=== PATIENT | male | born 1940 | race Caucasian/White ===

== ENCOUNTER 2016-10-09 09:15 | Inpatient (IN) ==
[2016-10-09] MEDS ORDERED: Acetaminophen 325 MG TABLET PO ONE (09:48)
--- NOTE | 2016-10-09 09:48 | Emergency Department Note ---
Disposition Clinical Impression: Pyelonephritis Urinary tract infection Qualifiers: Urinary tract infection type: site unspecified Hematuria presence: without hematuria Qualified Code(s): N39.0 - Urinary tract infection, site not specified Disposition: Admitted As Inpatient Condition: Fair [facility]: [facility] [Primary Care Provider[facility] - Forms: ED Satisfaction Letter General Adult HPI - General Chief complaint: ED Urogenital-Male Stated complaint: chills frequent urination Time Seen by Provider: 10/09/16 09:48 Source: patient Mode of arrival: private vehicle Limitations: no limitations Nursing Notes Reviewed: Yes Vital Signs Reviewed: Yes - History of Present Illness HPI Narrative: Presents to the ED complaining of urinary frequency, chills and testicular discomfort. He also reports worsening of his baseline shortness of breath. Urinary symptoms started yesterday. He has been urinating frequently but only with small amounts. He does report a change in the color of his urine but denies any hematuria or dysuria. Testicular discomfort as mild and dull. Denies any swelling or discharge. He had chills this morning but is not aware of a fever at home. States she also felt more short of breath than usual this morning. He has a history of COPD and wears oxygen at 2 L only at night. He has a chronic cough that is productive of clear to yellow sputum. Denies any change in the frequency or color of sputum. Does report compliance with his Spiriva, Symbicort and Flovent. He is use one albuterol treatment this morning. He is also noted some lower extremity swelling over the past 3-4 days. Denies any history of CHF. No chest pain. No abdominal pain, nausea, vomiting, diarrhea or constipation. states that they have seen some "spots " on his kidneys on previous imaging and he has been referred to nephrology at [facility] and has an appointment in October. They are not aware of any problems with renal function. He has a history of a TURP in 2010 for BPH. No history of prostate cancer. Pain Scale: 4 - Related Data Home Medications Medication Instructions Recorded Confirmed Albuterol Neb [AccuNeb] 1 aerosol AER Q8H 10/01/16 10/09/16 Albuterol Sulfate [Albuterol 2 puff IH Q4HR PRN 10/01/16 10/09/16 Inhaler] Cholecalciferol (D-3) [Vitamin D] 1,000 unit PO DAILY 10/01/16 10/09/16 Ferrous Gluconate 324 mg PO TID 10/01/16 10/09/16 Lisinopril-HCTZ 20-12.5 [Prinzide 1 each PO DAILY 10/01/16 10/09/16 20-12.5] Saxagliptin HCl [Onglyza] 2.5 mg PO DAILY 10/01/16 10/09/16 Tiotropium [Spiriva] 1 puff IH DAILY 10/01/16 10/09/16 Vit A/Vit C/Vit E/Zinc/Copper 1 each PO BIDWM 10/01/16 10/09/16 [Icaps Areds Formula Dr Tablet] Aspirin Enteric Coated [Aspirin EC] 81 mg PO DAILY 10/09/16 10/09/16 Budesonide/Formoterol 160/4.5 2 puff IH BIDR 10/09/16 10/09/16 [Symbicort 160/4.5] Metformin HCl [Glucophage] 1,000 mg PO BID 10/09/16 10/09/16 Multivitamin/Iron/Folic Acid 1 tab PO DAILY 10/09/16 10/09/16 [Centrum Complete Multivit Tab] Nabumetone [Relafen] 500 mg PO BID 10/09/16 10/09/16 Simvastatin [Zocor] 40 mg PO HS 10/09/16 10/09/16 Tiotropium [Spiriva] 18 mcg IH DAILY 10/09/16 10/09/16 amLODIPine [Norvasc] 5 mg PO DAILY 10/09/16 10/09/16 glipiZIDE [Glipizide] 10 mg PO DAILY 10/09/16 10/09/16 Allergies Allergy/AdvReac Type Severity Reaction Status Date / Time cilostazol [From Pletal] AdvReac See Verified 10/01/16 10:24 Comments doxazosin AdvReac Dizziness Verified 10/01/16 10:24 roflumilast [From Daliresp] AdvReac Diarrhea Verified 10/01/16 10:24 Constitutional: Reports: chills Eyes: Denies: eye pain, eye discharge, vision change ENT ED: Denies: ear pain, throat pain, dental pain, hearing loss, epistaxis, congestion, dysphagia Cardiovascular: Denies: chest pain, palpitations, dyspnea on exertion, edema, syncope Respiratory: Reports: cough, dyspnea, sputum production. Denies: wheezes, hemoptysis, stridor Gastrointestinal: Denies: abdominal pain, nausea, vomiting, diarrhea, constipation, hematemesis, melena, hematochezia Genitourinary: Reports: as per HPI, urgency, frequency, testicular pain. Denies : dysuria, hematuria Musculoskeletal: Denies: back pain, neck pain, arthralgia, myalgia Integumentary: Denies: rash, abrasion, lesions Neurological: Denies: headache, weakness, numbness, paresthesias, confusion, abnormal gait, vertigo Psychiatric: Denies: anxiety, depression, suicidal thoughts, homicidal thoughts , auditory hallucinations, visual hallucinations Endocrine: Denies: fatigue Hematological/Lymphatic: Denies: easy bleeding, easy bruising Allergic/Immunologic: Denies: facial swelling, urticaria Past Medical History - Past Medical History Medical history: Reports: COPD, CVA, diabetes, GI bleed, hyperlipidemia, hypertension, peripheral artery disease, other Psychiatric history: Reports: no psych history - Social History Smoking Status: Current every day smoker Smokeless Tobacco Status: No Alcohol use: Reports: none Drug use: Reports: none Physical Exam - General Limitations: no limitations General appearance: alert, in no apparent distress - Head Head exam: atraumatic, normocephalic, normal inspection - Eye Eye exam: Present: normal appearance, PERRL, EOMI - ENT ENT exam: normal exam, normal oropharynx, mucous membranes moist - Neck Neck exam: Present: normal inspection, full ROM, trachea midline - Chest Chest inspection: Present: normal inspection, symmetric chest wall rise - Respiratory Respiratory exam: Present: respiratory distress, prolonged expiratory phase - Expanded Respiratory Exam Location: wheezes: Upper, Right, Left (expiratory) - Cardiovascular Cardiovascular exam: Present: regular rate, normal rhythm, normal heart sounds - Abdominal Exam Abdominal exam: Present: soft, Non-Tender, normal bowel sounds. Absent: tenderness, distention, guarding, rebound, rigidity - Extremities Exam Extremities exam: Present: normal inspection, full ROM, normal capillary refill , pedal edema (+1 bilaterally to lower montes). Absent: tenderness - Expanded Lower Extremity Exam Gait: other (uses cane) - Back Exam Back exam: Present: normal inspection, full ROM. Absent: tenderness, CVA tenderness (R), CVA tenderness (L) - Neurological Exam Neurological exam: Present: alert, oriented X3 - Psychiatric Psychiatric exam: Present: normal affect, normal mood - Skin Skin exam: Present: warm, dry, intact, normal color Course Course Narrative: Patient presents to the ED with 24 hours of urinary frequency, decreased appetite and chills as well as shortness of breath with productive cough. He has a low-grade temp here. Primary concern would be for UTI with possibility of pyloric given low-grade fever although he has no CVA tenderness. His worsening shortness of breath may be a simple COPD exacerbation but given the yellow sputum and low-grade temperatures possibility of pneumonia as well. Will investigate further with labs and chest x-ray. Will give Tylenol for fever and DuoNeb for current wheezing and dyspnea. - Reevaluation(s) Reevaluation #1: Urinalysis does show significant evidence of infection. Laboratory studies show a leukocytosis with left shift. Creatinine is slightly elevated but there are no recent labs for comparison. Lactic acid is normal. Chest x-ray shows no evidence of pneumonia. Patient meets criteria for pyelonephritis but not sepsis. He will be started on IV fluids and IV antibiotics. I have spoken to the patient regarding need for admission given his comorbidities and need for antibiotics and IV fluids. Patient and are in agreement. I have spoken to the hospitalist on-call, Dr. Galicia, who has agreed to accept the patient. Will start IV antibiotics and IV fluids in the ED. Vital Signs Temperature 100.5 F H 10/09/16 09:30 Pulse Rate 102 10/09/16 09:30 Respiratory Rate 20 10/09/16 09:30 Blood Pressure 147/53 10/09/16 09:30 O2 Sat by Pulse Oximetry 92 10/09/16 09:30 Temperature 100.8 F H 10/09/16 11:28 Pulse Rate 87 10/09/16 11:28 Respiratory Rate 18 10/09/16 11:28 Blood Pressure 138/60 10/09/16 11:28 O2 Sat by Pulse Oximetry 93 10/09/16 11:28 Oxygen Delivery Oxygen Delivery Room Air Medical Decision Making - Differential Diagnosis UTI, pyelonephritis, COPD exacerbation, pneumonia, SIRS - Medical Records Medical records reviewed: Yes I reviewed the patient's medical records. - Lab Data Lab results reviewed: Yes I reviewed the patient's lab results. Result diagrams: 10/09/16 10:18 10/09/16 10:18 Lab Results 10/09/16 10/09/16 10/09/16 Range/Units 09:50 10:18 10:18 WBC 18.4 H (4.3-11.1) K/mcL RBC 3.80 L (4.19-5.50) M/mcL Hgb 11.2 L (12.9-16.9) g/dL Hct 32.4 L (37.5-50.1) % MCV 85.3 (83.0-100.0) fL MCH 29.5 (28.0-33.3) pg MCHC 34.6 (31.6-35.5) g/dL RDW 16.0 H (11.5-14.5) % Plt Count 244 (140-400) K/mcL MPV 9.0 L (9.4-12.4) fL Immature Gran % 0.8 (0-4) % Seg Neutrophils % 87.7 % Lymphocytes % 2.9 % Monocytes % 8.2 % Eosinophils % 0.2 % Basophils % 0.2 % Neutrophils # 16.1 H (1.6-8.9) K/mcL Lymphocytes # 0.5 L (0.6-4.6) K/mcL Monocytes # 1.5 H (0.0-1.3) K/mcL Eosinophils # 0.0 (0.0-0.6) K/mcL Basophils # 0.0 (0.0-0.2) K/mcL VBG Lactic Acid (0.5-2.2) mmol/L Sodium 135 L (136-145) mEq/L Potassium 4.7 H (3.5-4.5) mEq/L Chloride 105 (98-109) mEq/L Carbon Dioxide 19 (19-29) mEq/L BUN 24 (8-26) mg/dL Creatinine 1.49 H (0.72-1.25) mg/dL Est GFR ( Amer) 55 L (> 60) Est GFR (Non-Af Amer) 46 L (> 60) BUN/Creatinine Ratio 16 (6-26) Glucose 207 H (70-99) mg/dL Calculated Osmolality 290 (280-300) Calcium 9.5 (8.6-10.8) mg/dL B-Natriuretic Peptide (0-100) pg/mL Urine Color Yellow (Yellow) Urine Clarity Cloudy A (Clear) Urine pH 7.0 (5.0-8.0) pH Units Ur Specific [place] 1.020 (1.010-1.025) Urine Protein 100 H (Neg-Trace) mg/dL Urine Glucose (UA) Normal (Normal) mg/dL Urine Ketones Negative (Negative) mg/dL Urine Blood Small H (Negative) Urine Nitrite Positive A (Negative) Urine Bilirubin Negative (Negative) Urine Urobilinogen Normal (Normal) mg/dL Ur Leukocyte Esterase Large H (Negative) Urine Microscopic RBC 3-5 H (0-3) per hpf Urine Microscopic WBC TNTC H (0-3) per hpf Urine Bacteria Many H (None-Few) per hpf Ur Culture Indicated? YES A (NO) 10/09/16 10/09/16 Range/Units 10:18 11:05 WBC (4.3-11.1) K/mcL RBC (4.19-5.50) M/mcL Hgb (12.9-16.9) g/dL Hct (37.5-50.1) % MCV (83.0-100.0) fL MCH (28.0-33.3) pg MCHC (31.6-35.5) g/dL RDW (11.5-14.5) % Plt Count (140-400) K/mcL MPV (9.4-12.4) fL Immature Gran % (0-4) % Seg Neutrophils % % Lymphocytes % % Monocytes % % Eosinophils % % Basophils % % Neutrophils # (1.6-8.9) K/mcL Lymphocytes # (0.6-4.6) K/mcL Monocytes # (0.0-1.3) K/mcL Eosinophils # (0.0-0.6) K/mcL Basophils # (0.0-0.2) K/mcL VBG Lactic Acid 1.2 (0.5-2.2) mmol/L Sodium (136-145) mEq/L Potassium (3.5-4.5) mEq/L Chloride (98-109) mEq/L Carbon Dioxide (19-29) mEq/L BUN (8-26) mg/dL Creatinine (0.72-1.25) mg/dL Est GFR ( Amer) (> 60) Est GFR (Non-Af Amer) (> 60) BUN/Creatinine Ratio (6-26) Glucose (70-99) mg/dL Calculated Osmolality (280-300) Calcium (8.6-10.8) mg/dL B-Natriuretic Peptide 59 (0-100) pg/mL Urine Color (Yellow) Urine Clarity (Clear) Urine pH (5.0-8.0) pH Units Ur Specific [place] (1.010-1.025) Urine Protein (Neg-Trace) mg/dL Urine Glucose (UA) (Normal) mg/dL Urine Ketones (Negative) mg/dL Urine Blood (Negative) Urine Nitrite (Negative) Urine Bilirubin (Negative) Urine Urobilinogen (Normal) mg/dL Ur Leukocyte Esterase (Negative) Urine Microscopic RBC (0-3) per hpf Urine Microscopic WBC (0-3) per hpf Urine Bacteria (None-Few) per hpf Ur Culture Indicated? (NO) - Radiology Data Radiology results reviewed: Yes I reviewed the patient's radiology results. ITS Impressions Chest X-Ray 10/09/16 09:49 IMPRESSION: No acute process. D/ / Clay Caldera MD / Clay Caldera MD Interpreting Provider: Clay Caldera MD
[2016-10-09] MEDS ORDERED: Ipratropium/Albuterol Neb 3 ML IH ONE (09:49)
[2016-10-09 10:04] LABS: Bilirubin,Urine Negative (Negative); Blood,Urine Small (Negative); Clarity,Urine Cloudy (Clear); Color,Urine Yellow (Yellow); Glucose,Urine (UA) Normal (Normal); Ketones,Urine Negative (Negative); Leukocyte Esterase,Urine Large (Negative); Nitrite,Urine Positive (Negative); Protein,Urine 100 mg/dL (Neg-Trace); Urobilinogen,Urine Normal (Normal)
[2016-10-09 10:41] LABS: Basophils % 0.2 %; Eosinophils % 0.2 %; Hematocrit 32.4 % (37.5-50.1); Hemoglobin 11.2 g/dL (12.9-16.9); Immature Granulocytes % 0.8 % (0-4); Lymphocytes # 0.5 K/mcL (0.6-4.6); Lymphocytes % 2.9 %; Mean Corpuscular HGB Conc 34.6 g/dL (31.6-35.5); Mean Corpuscular Hemoglobin 29.5 pg (28.0-33.3); Mean Corpuscular Volume 85.3 fL (83.0-100.0); Monocytes # 1.5 K/mcL (0.0-1.3); Monocytes % 8.2 %; Neutrophils # 16.1 K/mcL (1.6-8.9); Platelet Count 244 K/mcL (140-400); Segmented Neutrophils % 87.7 %
[2016-10-09 10:43] LABS: Bacteria,Urine Many per hpf (None-Few); WBC,Urine TNTC per hpf (0-3)
[2016-10-09 10:50] LABS: Calcium 9.5 mg/dL (8.6-10.8); Potassium 4.7 mEq/L (3.5-4.5)
[2016-10-09] MEDS ORDERED: 0.9 % Sodium Chloride 500 ML IVC ONE (11:18)
[2016-10-09] MEDS ORDERED: Acetaminophen 325 MG TABLET PO PRN (11:29)
[2016-10-09] MEDS ORDERED: Naloxone 0.4 MG/ML INJ IVP PRN ×2 (11:29→15:38)
--- NOTE | 2016-10-09 14:00 | Internal Med History&Physical ---
Date of Encounter: 10/09/16 Time of Encounter: 13:57 Assessment and Plan (1) Epididymitis with no abscess Current visit: Yes Status: Acute I will wait to see her again ultrasound and a urologist will consult. (2) Pyelonephritis Current visit: Yes Status: Acute Currently B November the antibiotics and fluid (3) Urinary tract infection Current visit: Yes Status: Acute See above Qualifiers: Urinary tract infection type: site unspecified Hematuria presence: without hematuria Qualified Code(s): N39.0 - Urinary tract infection, site not specified (4) BPH (benign prostatic hyperplasia) Current visit: Yes Status: Acute there may be a possibility of BP H. Qualifiers: Prostatic enlargement morphology: unspecified morphology Lower urinary tract symptom presence: presence of symptoms unspecified Qualified Code(s): N40.0 - Benign prostatic hyperplasia without lower urinary tract symptoms Internal Medicine - H&P: HPI Admitted From: Emergency Dept Plans for Post Hospital Care: Home History of present illness: Mr. Hernandez is a 75 year old male Who presents with a 1 day history of frequency of urination yesterday discomfort some testicular pain and swelling. Is low-grade temperature and was admitted for pyelonephritis. UA was terrible Past Med Surg Social Fam HX - Past Medical History Medical history: COPD, CVA, diabetes, GI bleed, hyperlipidemia, hypertension, peripheral artery disease, other Psychiatric history: no psych history - Social History Smoking Status: Current every day smoker Smokeless Tobacco Status: No Alcohol use: none Drug use: none - Family History Son Adopted: No Family Member Ethnicity: Non- Living Status: Still Living Hx Family Cardiac Disorders: Yes (HTN) Hx Family Respiratory Disorders: No Hx Family Cancer: No Hx Family GI Disorders: Yes (Hernia) Hx Family Endocrine Disorder: No Hx Family Neuromuscular Disorders: No Hx Family Neurologic Disorders: No Hx Family HEENT Disorders: No Hx Family Autoimmune Disorders: No Internal Medicine - H&P: Meds Albuterol Neb [AccuNeb] 1 aerosol AER Q8H PRN 10/01/16 [History] Albuterol Sulfate [Albuterol Inhaler] 2 puff IH Q4HR PRN 10/01/16 [History] Cholecalciferol (D-3) [Vitamin D] 1,000 unit PO DAILY 10/01/16 [History] Ferrous Gluconate 324 mg PO TID 10/01/16 [History] Lisinopril-HCTZ 20-12.5 [Prinzide 20-12.5] 1 each PO DAILY 10/01/16 [History] Saxagliptin HCl [Onglyza] 2.5 mg PO DAILY 10/01/16 [History] Budesonide/Formoterol 160/4.5 [Symbicort 160/4.5] 2 puff IH BIDR 10/09/16 [ History] Metformin HCl [Glucophage] 1,000 mg PO BID 10/09/16 [History] Multivitamin/Iron/Folic Acid [Centrum Complete Multivit Tab] 1 tab PO DAILY [History] Simvastatin [Zocor] 40 mg PO HS 10/09/16 [History] Tiotropium [Spiriva] 18 mcg IH 1200 10/09/16 [History] amLODIPine [Norvasc] 5 mg PO DAILY 10/09/16 [History] glipiZIDE [Glipizide] 10 mg PO DAILY 10/09/16 [History] Allergies cilostazol [From Pletal] Adverse Reaction (Verified 10/01/16 10:24) See Comments irregular heartbeat doxazosin Adverse Reaction (Verified 10/01/16 10:24) Dizziness roflumilast [From Daliresp] Adverse Reaction (Verified 10/01/16 10:24) Diarrhea All Systems PM: A 10-system review of systems was performed and is negative for pertinent findings except as documented above in the HPI. - Constitutional Vitals: Temp Pulse Resp BP Pulse Ox 99.2 F 87 20 132/65 93 10/09/16 13:00 10/09/16 13:00 10/09/16 13:00 10/09/16 13:00 10/09/16 13:05 - Head Head exam: Present: atraumatic, normal inspection, normocephalic - Neck Neck exam general surgery: Present: supple, trachea midline. Absent: lymphadenopathy - Respiratory Respiratory exam: Present: decreased breath sounds, CTAB, prolonged expiratory phase. Absent: accessory muscle use, rales, rhonchi, wheezes - Cardiovascular Cardiovascular exam: Present: RRR, +S1, +S2. Absent: diastolic murmur, gallop, rubs, systolic murmur Additional comments: Distant Internal Med - H&P Results - Labs CBC & Chem 7: 10/09/16 10:18 10/09/16 10:18 Labs: We will follow - VTE Reasons for not Prescribing Prophylaxis: Treatment not Indicated - Low risk for VTE
[2016-10-09] MEDS ORDERED: *HR* OxyCODONE/APAP 5/325 TABLET PO PRN ×2 (14:06→15:38)
--- NOTE | 2016-10-09 14:25 | Urology - Consult Note ---
Date of Encounter: 10/09/16 Time of Encounter: 14:22 - Assessment and Plan (1) Epididymitis with no abscess Current Visit: Yes Status: Acute Assessment and plan: 75-year-old man with concern for urinary tract infection and possible right- sided epididymal orchitis. I recommend continuing with IV antibiotics and await for results of the urine culture to return. He does seem to be emptying his bladder adequately. We'll wait for results on a scrotal ultrasound to confirm there is no mass. He did not mention acute onset of scrotal pain, but more of a gradual onset. On exam his testicles have a normal lie. There appears to be hemostatic reflexes bilaterally. I do not appreciate concern for torsion. We will see how he does with the antibiotics and if it leads to resolution of the swelling. (2) Urinary tract infection Current Visit: Yes Status: Acute Assessment and plan: We will continue the IV antibiotic. Await results of culture. Qualifiers: Urinary tract infection type: site unspecified Hematuria presence: without hematuria Qualified Code(s): N39.0 - Urinary tract infection, site not specified Urology CN:HPI Consult date: 10/09/16 Reason for consult Urology: Other (Right orchitis) History of present illness: 75-year-old man presents with concern for increased urinary frequency and right hemiscrotal swelling. He says the swelling got worse over the last 3-4 days. The right testicle is tender. It is a dull heavy ache. It seems tender to touch. He also reports having to go more frequently with some sensations of incomplete emptying. He reports having a TUR procedure in the past. He says afterwards he has been urinating fairly well. He denies any fevers or chills. Past Med Surg Social Fam HX - Past Medical History Medical history: COPD, CVA, diabetes, GI bleed, hyperlipidemia, hypertension, peripheral artery disease, other Psychiatric history: no psych history - Social History Smoking Status: Current every day smoker Smokeless Tobacco Status: No Alcohol use: none Drug use: none - Family History Son Adopted: No Family Member Ethnicity: Non- Living Status: Still Living Hx Family Cardiac Disorders: Yes (HTN) Hx Family Respiratory Disorders: No Hx Family Cancer: No Hx Family GI Disorders: Yes (Hernia) Hx Family Endocrine Disorder: No Hx Family Neuromuscular Disorders: No Hx Family Neurologic Disorders: No Hx Family HEENT Disorders: No Hx Family Autoimmune Disorders: No Medications and Allergies Albuterol Neb [AccuNeb] 1 aerosol AER Q8H PRN 10/01/16 [History] Albuterol Sulfate [Albuterol Inhaler] 2 puff IH Q4HR PRN 10/01/16 [History] Cholecalciferol (D-3) [Vitamin D] 1,000 unit PO DAILY 10/01/16 [History] Ferrous Gluconate 324 mg PO TID 10/01/16 [History] Lisinopril-HCTZ 20-12.5 [Prinzide 20-12.5] 1 each PO DAILY 10/01/16 [History] Saxagliptin HCl [Onglyza] 2.5 mg PO DAILY 10/01/16 [History] Budesonide/Formoterol 160/4.5 [Symbicort 160/4.5] 2 puff IH BIDR 10/09/16 [ History] Metformin HCl [Glucophage] 1,000 mg PO BID 10/09/16 [History] Multivitamin/Iron/Folic Acid [Centrum Complete Multivit Tab] 1 tab PO DAILY [History] Simvastatin [Zocor] 40 mg PO HS 10/09/16 [History] Tiotropium [Spiriva] 18 mcg IH 1200 10/09/16 [History] amLODIPine [Norvasc] 5 mg PO DAILY 10/09/16 [History] glipiZIDE [Glipizide] 10 mg PO DAILY 10/09/16 [History] Allergies cilostazol [From Pletal] Adverse Reaction (Verified 10/01/16 10:24) See Comments irregular heartbeat doxazosin Adverse Reaction (Verified 10/01/16 10:24) Dizziness roflumilast [From Daliresp] Adverse Reaction (Verified 10/01/16 10:24) Diarrhea Review of Systems - Constitutional no chills, no fever(s) - EENT Nose, mouth and throat: no dizziness - Cardiovascular no chest pain - Respiratory no dyspnea - Gastrointestinal no nausea, no vomiting - Genitourinary testicular pain, no flank pain, no hematuria - Musculoskeletal no back pain - Integumentary no erythema, no rash - Neurological no weakness - Psychiatric no suicidal ideation - Hematologic/Lymphatic no easy bleeding - Allergic/Immunologic no wheezing Exam Initial Vital Signs Temp Pulse Resp BP Pulse Ox 100.5 F H 102 20 147/53 92 10/09/16 09:30 10/09/16 09:30 10/09/16 09:30 10/09/16 09:30 10/09/16 09:30 - General physical appearance Present: well developed, well nourished, no distress - Eyes Absent: icteric - ENT Present: normal nares - Neck Present: trachea midline - Respiratory Present: normal respiratory effort - Cardiovascular Cardiovascular exam IM: RRR - Abdomen Abdomen: Present: soft - Genitourinary normal penis with no external lesions, testicles present (Right hemiscrotal swelling - possible reactive hydrocele with right orchitis. Normal cremasteric reflex. No mass appreciated.) Urology Results - Labs 10/09/16 10:18 10/09/16 10:18 Abnormal lab results WBC 18.4 K/mcL (4.3-11.1) H 10/09/16 10:18 RBC 3.80 M/mcL (4.19-5.50) L 10/09/16 10:18 Hgb 11.2 g/dL (12.9-16.9) L 10/09/16 10:18 Hct 32.4 % (37.5-50.1) L 10/09/16 10:18 RDW 16.0 % (11.5-14.5) H 10/09/16 10:18 MPV 9.0 fL (9.4-12.4) L 10/09/16 10:18 Neutrophils # 16.1 K/mcL (1.6-8.9) H 10/09/16 10:18 Lymphocytes # 0.5 K/mcL (0.6-4.6) L 10/09/16 10:18 Monocytes # 1.5 K/mcL (0.0-1.3) H 10/09/16 10:18 Sodium 135 mEq/L (136-145) L 10/09/16 10:18 Potassium 4.7 mEq/L (3.5-4.5) H 10/09/16 10:18 Creatinine 1.49 mg/dL (0.72-1.25) H 10/09/16 10:18 Est GFR ( Amer) 55 (> 60) L 10/09/16 10:18 Est GFR (Non-Af Amer) 46 (> 60) L 10/09/16 10:18 Glucose 207 mg/dL (70-99) H 10/09/16 10:18 Urine Clarity Cloudy (Clear) A 10/09/16 09:50 Urine Protein 100 mg/dL (Neg-Trace) H 10/09/16 09:50 Urine Blood Small (Negative) H 10/09/16 09:50 Urine Nitrite Positive (Negative) A 10/09/16 09:50 Ur Leukocyte Esterase Large (Negative) H 10/09/16 09:50 Urine Microscopic RBC 3-5 per hpf (0-3) H 10/09/16 09:50 Urine Microscopic WBC TNTC per hpf (0-3) H 10/09/16 09:50 Urine Bacteria Many per hpf (None-Few) H 10/09/16 09:50 Ur Culture Indicated? YES (NO) A 10/09/16 09:50 All other labs normal. Consult Discharge Plan - Plan [facility]errals: [facility] [Primary Care Provider[facility] -
[2016-10-09] MEDS: *HR* Metformin 500 MG TABLET PO SCH (17:16)
[2016-10-09] MEDS: Budesonide/Formoterol 160/4.5 MDI IH SCH (21:21)
[2016-10-09] MEDS: Albuterol Neb 0.63 MG/3 ML VIAL AER SCH (23:31)
[2016-10-10 05:18] LABS: Basophils % 0.2 %; Eosinophils # 0.1 K/mcL (0.0-0.6); Eosinophils % 0.4 %; Hematocrit 28.2 % (37.5-50.1); Immature Granulocytes % 0.7 % (0-4); Lymphocytes % 4.3 %; Mean Corpuscular HGB Conc 35.5 g/dL (31.6-35.5); Mean Corpuscular Hemoglobin 30.2 pg (28.0-33.3); Mean Corpuscular Volume 85.2 fL (83.0-100.0); Mean Platelet Volume 8.9 fL (9.4-12.4); Monocytes # 1.4 K/mcL (0.0-1.3); Monocytes % 7.9 %; Platelet Count 185 K/mcL (140-400); Red Blood Count 3.31 M/mcL (4.19-5.50); Segmented Neutrophils % 86.5 %
[2016-10-10 05:31] LABS: Calcium 8.6 mg/dL (8.6-10.8); Potassium 4.5 mEq/L (3.5-4.5)
[2016-10-10 05:54] LABS: Lymphocytes # 0.7 K/mcL (0.6-4.6)
[2016-10-10] MEDS ORDERED: *HR* Enoxaparin 40 MG/0.4 ML SYRINGE SQ SCH (06:00)
[2016-10-10] MEDS: *HR* Enoxaparin 40 MG/0.4 ML SYRINGE SQ SCH (06:39)
[2016-10-10] MEDS: Albuterol Neb 0.63 MG/3 ML VIAL AER SCH ×3 (06:39→17:27)
[2016-10-10] MEDS: *HR* GlipiZIDE 5 MG TABLET PO SCH (07:52)
[2016-10-10] MEDS: Multivit/Ca/Min/Fe/FA 1 TAB TABLET PO SCH (07:52)
[2016-10-10] MEDS: Cholecalciferol (D-3) 1,000 UNIT TABLET PO SCH (07:52)
[2016-10-10] MEDS: Lisinopril-HCTZ 20-12.5mg TABLET PO SCH (07:52)
[2016-10-10] MEDS: amLODIPine 5 MG TABLET PO SCH (07:53)
[2016-10-10] MEDS: *HR* Metformin 500 MG TABLET PO SCH ×2 (07:53→17:23)
[2016-10-10] MEDS: Budesonide/Formoterol 160/4.5 MDI IH SCH ×2 (07:54→21:17)
[2016-10-10] MEDS: (Saxagliptin Hcl [Onglyza] 2.5 MG) PO SCH (07:54)
[2016-10-10] MEDS: Tiotropium 18 MCG inhalation IH SCH (07:59)
[2016-10-10] MEDS ORDERED: Aspirin Enteric Coated 81 MG Tablet PO SCH (09:00)
[2016-10-10] MEDS ORDERED: Tiotropium 18 MCG inhalation IH SCH (12:00)
--- NOTE | 2016-10-10 13:46 | Internal Med Progress Note ---
Date of Encounter: 10/10/16 Time of Encounter: 13:44 - Assessment and plan (1) Epididymitis with no abscess Current Visit: Yes Status: Acute Assessment and plan: Things a little better. No ultrasound again today (2) Pyelonephritis Current Visit: Yes Status: Acute Assessment and plan: Underway with antibiotics (3) Urinary tract infection Current Visit: Yes Status: Acute Assessment and plan: Interestingly enough he has a slightly raised PSA. Qualifiers: Urinary tract infection type: site unspecified Hematuria presence: without hematuria Qualified Code(s): N39.0 - Urinary tract infection, site not specified (4) BPH (benign prostatic hyperplasia) Current Visit: Yes Status: Acute Assessment and plan: No evidence Qualifiers: Prostatic enlargement morphology: unspecified morphology Lower urinary tract symptom presence: presence of symptoms unspecified Qualified Code(s): N40.0 - Benign prostatic hyperplasia without lower urinary tract symptoms - Time Spent With Patient less than 15 minutes - Subjective Interval history: Fever resolved white count down slightly Patient states "feeling better". - Constitutional Vitals: Temp Pulse Resp BP Pulse Ox 98.5 F 72 18 131/61 96 10/10/16 11:32 10/10/16 11:32 10/10/16 11:32 10/10/16 11:32 10/10/16 11:32 - Head Head exam: Present: atraumatic, normal inspection, normocephalic - Neck Neck exam general surgery: Present: supple, trachea midline. Absent: lymphadenopathy - Respiratory Respiratory exam: Present: CTAB. Absent: accessory muscle use, rales, rhonchi, wheezes - Cardiovascular Cardiovascular exam: Present: RRR, +S1, +S2. Absent: diastolic murmur, gallop, rubs, systolic murmur Internal Medicine: Result - Labs CBC & Chem 7: 10/10/16 05:10 10/10/16 05:10 Labs: Short CBC 10/10/16 Range/Units 05:10 WBC 17.3 H (4.3-11.1) K/mcL Hgb 10.0 L (12.9-16.9) g/dL Hct 28.2 L (37.5-50.1) % Plt Count 185 (140-400) K/mcL Neutrophils # 15.0 H (1.6-8.9) K/mcL BMP 06/01/17 05:10 Sodium 135 L Potassium 4.5 Chloride 106 Carbon Dioxide 22 BUN 26 Creatinine 1.54 H Glucose 168 H Calcium 8.6 As mentioned white count down slightly - VTE Reasons for not Prescribing Prophylaxis: Treatment not Indicated - Low risk for VTE Consult Discharge Plan - Plan [facility]: [facility] [Primary Care Provider] -
[2016-10-10] MEDS ORDERED: Albuterol Neb 1.25 MG/3 ML VIAL ONE (17:26)
[2016-10-11] MEDS: Albuterol Neb 0.63 MG/3 ML VIAL AER SCH ×5 (00:15→21:34)
[2016-10-11] MEDS: *HR* Enoxaparin 40 MG/0.4 ML SYRINGE SQ SCH (04:23)
[2016-10-11] MEDS: Budesonide/Formoterol 160/4.5 MDI IH SCH ×2 (08:03→21:34)
[2016-10-11] MEDS: Multivit/Ca/Min/Fe/FA 1 TAB TABLET PO SCH (08:04)
[2016-10-11] MEDS: Acetaminophen 325 MG TABLET PO PRN ×2 (08:04→17:49)
[2016-10-11] MEDS: *HR* Metformin 500 MG TABLET PO SCH ×2 (08:04→17:45)
[2016-10-11] MEDS: Cholecalciferol (D-3) 1,000 UNIT TABLET PO SCH (08:04)
[2016-10-11] MEDS: amLODIPine 5 MG TABLET PO SCH (08:04)
[2016-10-11] MEDS: Lisinopril-HCTZ 20-12.5mg TABLET PO SCH (08:04)
[2016-10-11] MEDS: *HR* GlipiZIDE 5 MG TABLET PO SCH (08:04)
[2016-10-11] MEDS: Tiotropium 18 MCG inhalation IH SCH (08:06)
[2016-10-11] MEDS: (Saxagliptin Hcl [Onglyza] 2.5 MG) PO SCH (08:06)
--- NOTE | 2016-10-11 13:41 | Internal Med Progress Note ---
Date of Encounter: 10/11/16 Time of Encounter: 13:39 - Assessment and plan (1) Epididymitis with no abscess Current Visit: Yes Status: Acute Assessment and plan: Well I do not see any evidence of much change here it is not quite as tender as it was no ultrasound yet though. (2) Pyelonephritis Current Visit: Yes Status: Acute Assessment and plan: [place] (3) Urinary tract infection Current Visit: Yes Status: Acute Assessment and plan: Improved Qualifiers: Urinary tract infection type: site unspecified Hematuria presence: without hematuria Qualified Code(s): N39.0 - Urinary tract infection, site not specified (4) BPH (benign prostatic hyperplasia) Current Visit: Yes Status: Acute Assessment and plan: No evidence Qualifiers: Prostatic enlargement morphology: unspecified morphology Lower urinary tract symptom presence: presence of symptoms unspecified Qualified Code(s): N40.0 - Benign prostatic hyperplasia without lower urinary tract symptoms - Time Spent With Patient less than 15 minutes - Subjective Interval history: Patient looks good is eating better he feels better he is afebrile making good progress. Probably go home on - Constitutional Vitals: Temp Pulse Resp BP Pulse Ox 98.0 F 97 18 109/53 97 10/11/16 11:21 10/11/16 11:21 10/11/16 11:21 10/11/16 11:21 10/11/16 11:21 - Head Head exam: Present: atraumatic, normal inspection, normocephalic - Neck Neck exam general surgery: Present: supple, trachea midline. Absent: lymphadenopathy - Respiratory Respiratory exam: Present: CTAB. Absent: accessory muscle use, rales, rhonchi, wheezes - Cardiovascular Cardiovascular exam: Present: RRR, +S1, +S2. Absent: diastolic murmur, gallop, rubs, systolic murmur Internal Medicine: Result - Labs CBC & Chem 7: 10/10/16 05:10 10/10/16 05:10 Labs: Labs look stable - VTE Reasons for not Prescribing Prophylaxis: Treatment not Indicated - Low risk for VTE Consult Discharge Plan - Plan [facility]errals: [facility] [Primary Care Provider] -
[2016-10-11] MEDS: Nicotine 21 MG PATCH.TD24 TD SCH (17:45)
[2016-10-12] MEDS: Albuterol Neb 0.63 MG/3 ML VIAL AER SCH (06:04)
[2016-10-12] MEDS: *HR* Enoxaparin 40 MG/0.4 ML SYRINGE SQ SCH (06:04)
[2016-10-12] MEDS: amLODIPine 5 MG TABLET PO SCH (08:35)
[2016-10-12] MEDS: *HR* Metformin 500 MG TABLET PO SCH (08:36)
[2016-10-12] MEDS: *HR* GlipiZIDE 5 MG TABLET PO SCH (08:36)
[2016-10-12] MEDS: Multivit/Ca/Min/Fe/FA 1 TAB TABLET PO SCH (08:36)
[2016-10-12] MEDS: Lisinopril-HCTZ 20-12.5mg TABLET PO SCH (08:36)
[2016-10-12] MEDS: Nicotine 21 MG PATCH.TD24 TD SCH ×2 (08:36→14:42)
[2016-10-12] MEDS: Cholecalciferol (D-3) 1,000 UNIT TABLET PO SCH (08:36)
[2016-10-12] MEDS: (Saxagliptin Hcl [Onglyza] 2.5 MG) PO SCH (08:38)
[2016-10-12] MEDS: Tiotropium 18 MCG inhalation IH SCH (08:38)
[2016-10-12 11:49] VITALS: BP 134/52
[2016-10-12] MEDS: Budesonide/Formoterol 160/4.5 MDI IH SCH (12:22)
--- NOTE | 2016-10-12 13:57 | Discharge Summary ---
Date of Encounter: 10/12/16 Time of Encounter: 13:54 - Discharge Diagnosis (1) Pyelonephritis Priority: Primary Status: Acute - Discharge Medications Prescriptions: Ciprofloxacin HCl [Cipro] 500 mg PO BID #20 tablet Home Medications: Albuterol Neb [AccuNeb] 1 aerosol AER Q8H PRN 10/01/16 [History] Albuterol Sulfate [Albuterol Inhaler] 2 puff IH Q4HR PRN 10/01/16 [History] Cholecalciferol (D-3) [Vitamin D] 1,000 unit PO DAILY 10/01/16 [History] Ferrous Gluconate 324 mg PO TID 10/01/16 [History] Lisinopril-HCTZ 20-12.5 [Prinzide 20-12.5] 1 each PO DAILY 10/01/16 [History] Saxagliptin HCl [Onglyza] 2.5 mg PO DAILY 10/01/16 [History] Budesonide/Formoterol 160/4.5 [Symbicort 160/4.5] 2 puff IH BIDR 10/09/16 [ History] Metformin HCl [Glucophage] 1,000 mg PO BID 10/09/16 [History] Multivitamin/Iron/Folic Acid [Centrum Complete Multivit Tab] 1 tab PO DAILY [History] Simvastatin [Zocor] 40 mg PO HS 10/09/16 [History] Tiotropium [Spiriva] 18 mcg IH 1200 10/09/16 [History] amLODIPine [Norvasc] 5 mg PO DAILY 10/09/16 [History] glipiZIDE [Glipizide] 10 mg PO DAILY 10/09/16 [History] Budesonide/Formoterol 160/4.5 [Symbicort 160/4.5] 2 puff IH BIDR inhaler [Rx] Cholecalciferol (D-3) [Vitamin D] 1,000 unit PO DAILY tablet 10/12/16 [Rx] Ciprofloxacin HCl [Cipro] 500 mg PO BID #20 tablet 10/12/16 [Rx] Multivit/Ca/Min/Fe/FA [Thera M Plus] 1 tab PO DAILY tablet 10/12/16 [Rx] Naloxone [Narcan] 0.4 mg IVP Q2MIN PRN #0 inj 10/12/16 [Rx] OxyCODONE/APAP 5/325 [Percocet 5/325 MG] 1 each PO Q6HR PRN #0 tablet 10/12/16 [ Rx] Saxagliptin HCl [Onglyza] 2.5 mg PO DAILY 10/12/16 [Rx] Tiotropium [Spiriva] 18 mcg IH DAILY inh 10/12/16 [Rx] glipiZIDE [Glucotrol] 10 mg PO DAILY tablet 10/12/16 [Rx] Allergies/Adverse Reactions: Allergies cilostazol [From Pletal] Adverse Reaction (Verified 10/01/16 10:24) See Comments irregular heartbeat doxazosin Adverse Reaction (Verified 10/01/16 10:24) Dizziness roflumilast [From Daliresp] Adverse Reaction (Verified 10/01/16 10:24) Diarrhea Date of admission: 10/10/16 14:57 Primary care physician: PCP ISAEL Anticipated date of discharge: 10/12/16 - Patient Status Disposition: Home, Self-Care Condition: Fair Functional capacity at discharge: independent ambulation Overall status at discharge: patient is back to baseline - Discharge Instructions Instructions: Urinary Tract Infection in Men (DC) Follow Up With: [facility] [Primary Care Provider] - - Diet and Activity Activity: increase activity as tolerated Diet: advance to your usual diet Hospital course: Mr. Hernandez is a 75 year old male admitted through the ED for pyelonephritis. He was admitted for IV antibiotics. He also has chronic scrotal swelling. He is scheduled for ultrasound and 3 days. He has seen a urologist for this. Today the patient and his is adamant about going home. They do not want to stay here for IV antibiotics. They are willing to continue with oral antibiotics. I explained all the risk and possible congregations. They did agree to return to the ED if she changed her mind. Today he is feeling much better and wants to go home. - Time Spent with Patient Total time spent providing and/or coordinating discharge services: - Constitutional Vitals: Temp Pulse Resp BP Pulse Ox 98.1 F 65 16 134/52 97 10/12/16 11:00 10/12/16 11:00 10/12/16 11:00 10/12/16 11:00 10/12/16 11:00 General appearance: Present: A&O X 3, pleasant, no acute distress - Cardiovascular Cardiovascular exam: Present: RRR, +S1, +S2. Absent: diastolic murmur, gallop, rubs, systolic murmur - GI/Abdominal GI/Abdominal exam: Present: normal bowel sounds, soft, no peritoneal signs. Absent: distended, tenderness - Expanded Exam exam: testicular swelling: Left, Right - VTE Reasons for not Prescribing Prophylaxis: Treatment not Indicated - Low risk for VTE
[2016-10-12] MEDS ORDERED: Nicotine 21 MG PATCH.TD24 TD SCH (16:44)
== END 2016-10-12 14:52 | disposition home or self-care (01) | DRG 690 ==
LOC: INPGRE 09:15 → EMEROOGRE 09:15 → INPGRE 12:09
PROVIDERS: ADMIT Internal Medicine; ATTEND Internal Medicine